=== PATIENT | male | born 1950 | race Caucasian/White ===

== ENCOUNTER 2018-04-06 05:38 | Day surgery (SDC) | payer OTHER, BC ==
[2018-03-24 10:46] VITALS: BMI 35.0
--- NOTE | 2018-03-24 11:18 | PAT Medication Instructions ---
Service Date March 24, 2018. Current Home Medication List Aspirin (Aspirin Chewable), 81 MG PO QAM Atorvastatin (Lipitor), 1 TAB PO QAM Bicalutamide (Casodex), 1 TAB PO QAM Docusate Sodium (Colace), 1 CAP PO BID Leuprolide Acetate (Lupron Depot), 22.5 MG IM DIRECTED Omeprazole (Prilosec), 20 MG PO QAM Tadalafil (Cialis), 20 MG PO UD Medication Instructions For Your Scheduled Surgery -Check with your surgeon and prescriber for instructions for: Aspirin (Aspirin Chewable), 81 MG PO QAM -Continue as directed: Leuprolide Acetate (Lupron Depot), 22.5 MG IM DIRECTED - Hold the following medications the morning of surgery: Docusate Sodium (Colace), 1 CAP PO BID Tadalafil (Cialis), 20 MG PO UD - Take the following medications the morning of surgery with a sip of water: Atorvastatin (Lipitor), 1 TAB PO QAM Bicalutamide (Casodex), 1 TAB PO QAM Omeprazole (Prilosec), 20 MG PO QAM - Take the following medications as scheduled the night before surgery: Docusate Sodium (Colace), 1 CAP PO BID Tadalafil (Cialis), 20 MG PO UD (if needed) If you have any questions please call us at [phone] or [phone] or [phone]
--- NOTE | 2018-03-24 12:09 | DIAGNOSTIC IMAGING REPORT ---
CHEST 2 VIEWS ROUTINE CLINICAL HISTORY: PAT preoperative evaluation COMPARISON STUDY: No previous studies for comparison. FINDINGS: The bones soft tissues and hemidiaphragms are normal. The cardiomediastinal silhouette is normal. The lungs are clear. The pulmonary vasculature is normal. IMPRESSION: Negative chest. The above report was generated using voice recognition software. It may contain grammatical, syntax or spelling errors. Electronically signed by: Yovany Chang M.D. 03/24/2018 12:08 PM Dictated Date/Time: 03/24/2018 12:07 PM
[2018-03-24 12:34] LABS: BASO % 0.1 %; BASO ABS # 0.01 K/uL (0-0.2); EOS % 2.1 %; EOS ABS # 0.18 K/uL (0-0.5); HEMATOCRIT 42.1 % (42-52); IG# 0.02 K/uL (0.00-0.02); LYMPH % 23.7 %; LYMPH ABS # 1.99 K/uL (1.2-3.4); MEAN CELL VOLUME 86.3 fL (80-100); MEAN CORPUSCULAR HEMOGLOBIN 30.7 pg (25-34); MEAN CORPUSCULAR HGB CONC 35.6 g/dl (32-36); MEAN PLATELET VOLUME 9.4 fL (7.4-10.4); MONO % 6.4 %; MONO ABS # 0.54 K/uL (0.11-0.59); NEUT % 67.5 %; NEUT ABS # 5.66 K/uL (1.4-6.5); PLATELET COUNT 245 K/uL (130-400); RED CELL DISTRIBUTION WIDTH CV 13.8 % (11.5-14.5); RED CELL DISTRIBUTION WIDTH SD 43.1 fL (36.4-46.3)
[2018-03-24 12:42] LABS: CALCIUM 9.3 mg/dl (8.5-10.1); CREATININE 1.12 mg/dl (0.60-1.40); POTASSIUM 4.1 mmol/L (3.5-5.1)
[~2018-04-06] VITALS: Ht 170.2 cm; Wt 101.3 kg
[~2018-04-06 05:38] MED LIST: ASPCH81X PO; ATOR-24 PO; BICA50TA2 PO; DOCU-94 PO; LEUP1INJ15 IM; PRLSR20 PO; TADA10TA PO
[2018-04-06] MEDS ORDERED: CIPROFLOXACIN / D5W 400 MG IV SCH (06:00)
[2018-04-06] MEDS ORDERED: LACTATED RINGER'S 1000ML 1,000 ML IV SCH (06:00)
[2018-04-06] MEDS ORDERED: GENTAMICIN INJ 120 MG in DEXTROSE 5% 100ML 100 ML IV SCH (06:00)
[2018-04-06] MEDS ORDERED: THIA100T11 PO (06:10)
[2018-04-06 06:14] VITALS: BP 190/112; PULSE 75; TEMP 36.6; O2SAT 98; Ht 170.2 cm; Wt 101.3 kg
[2018-04-06] MEDS ORDERED: MIDAZOLAM HCL 1 MG/ML 2ML VIAL ONE (06:38)
[2018-04-06] MEDS ORDERED: DEXAMETHASONE SOD INJ 4 MG/ML VIAL ONE (06:38)
[2018-04-06] MEDS ORDERED: ONDANSETRON INJ 2 MG/ML 2 ML VIAL ONE (06:38)
[2018-04-06] MEDS ORDERED: LIDOCAINE HCL 2% 2 ML VIAL (20MG/ML) ONE (06:38)
[2018-04-06] MEDS ORDERED: FENTANYL CITRATE INJ 50 MCG/1 ML 2 ML VIAL ONE (06:38)
[2018-04-06] MEDS ORDERED: PROPOFOL IV EMULSION 10 MG/ML 20 ML VIAL ONE (06:38)
[2018-04-06] MEDS ORDERED: CONRAY 60% 50 ML VIAL ONE (07:01)
[2018-04-06] MEDS ORDERED: BACITRACIN OINT 15 GM TUBE ONE (07:02)
--- NOTE | 2018-04-06 07:05 | History & Physical Bridge Note ---
H&P Re-Evaluation Bridge Note: I have examined the patient, reviewed the History & Physical and in the interval since the performance of the History & Physical I have noted the following changes of clinical significance: No changes noted
[2018-04-06] MEDS ORDERED: MEPERIDINE HCL 25 MG/ML CARP IV PRN (07:45)
[2018-04-06] MEDS ORDERED: ATROPINE SULFATE 0.1 MG/ML 5ML SYR IV PRN (07:45)
[2018-04-06] MEDS ORDERED: HYDROmorphone INJ 0.5 MG/0.5 ML SYR IV PRN (07:45)
[2018-04-06] MEDS ORDERED: PHENYLEPHRINE 100MCG/ML 5ML SYR IV PRN (07:45)
[2018-04-06] MEDS ORDERED: FLUMAZENIL 0.1 MG/1 ML 10 ML VIAL IV PRN (07:45)
[2018-04-06] MEDS ORDERED: NALOXONE HCL 0.4 MG/1 ML VIAL/CARP IV PRN (07:45)
[2018-04-06] MEDS ORDERED: FENTANYL CITRATE INJ 50 MCG/1 ML 2 ML VIAL IV PRN (07:45)
[2018-04-06] MEDS ORDERED: ONDANSETRON INJ 2 MG/ML 2 ML VIAL IV PRN (07:45)
[2018-04-06] MEDS ORDERED: EpHEDrine SULFATE INJ 50 MG/ML AMP IV PRN (07:45)
[2018-04-06] MEDS ORDERED: LABETALOL HCL IV 5 MG/ML 20ML IV PRN (07:45)
[2018-04-06] MEDS ORDERED: EpHEDrine SULFATE INJ 50 MG/ML AMP ONE (08:20)
[2018-04-06] MEDS ORDERED: NEOSTIGMINE METHYLSULFATE 5 MG/5 ML SYR ONE (08:37)
[2018-04-06] MEDS ORDERED: GLYCOPYRROLATE INJ 0.2 MG/ML VIAL ONE ×2 (08:37→08:46)
[2018-04-06] MEDS ORDERED: ROCURONIUM BROMIDE 10 MG/ML 5 ML VIAL ONE (08:40)
[2018-04-06] MEDS ORDERED: LABETALOL HCL IV 5 MG/ML 20ML ONE (08:57)
--- NOTE | 2018-04-06 09:10 | Discharge Instructions ---
Discharge Instructions Date of Service April 06, 2018. Admission Reason for Admission: Prostate Cancer Discharge Discharge Diagnosis / Problem: Same status post aborted brachytherapy due to equipment malfunction Discharge Goals Goal(s): Improve disease control, Therapeutic intervention Activity Recommendations Activity Limitations: resume your previous activity . Instructions / Follow-Up Instructions / Follow-Up As scheduled in office, will contact with new appointments. Current Hospital Diet Patient's current hospital diet: Discharge Diet Recommended Diet: Regular Diet Procedures Procedures Performed: Attempted Brachy Therapy aborted due to equipment failure Pending Studies Studies pending at discharge: no Medical Emergencies . Who to Call and When: Medical Emergencies: If at any time you feel your situation is an emergency, please call 911 immediately. . Non-Emergent Contact Non-Emergency issues call your: Urologist Call Non-Emergent contact if: you have a fever . . "Provider Documentation" section prepared by Alex Ortiz. .
--- NOTE | 2018-04-06 09:15 | [facility] Operative Report ---
Operative Report Operative Date April 06, 2018. Pre-Operative Diagnosis Prostate cancer Post-Operative Diagnosis Prostate cancer Procedure(s) Performed Attempted Brachy Therapy aborted due to equipment failure Surgeon Dr. Alex Ortiz MD Coach Professional Athletes Surgeon(s) Dr. Von Simental Estimated Blood Loss 0ml Findings Apparent malfunction of the transverse crystal of the brachytherapy probe. Specimens None per surgeon Drains None Anesthesia Type General Complication(s) Malfunction of the brachytherapy program Disposition no Recovery Room / PACU Indications Patient is a 68-year-old male with high-grade prostate cancer who is here today for prostate seed implantation in combination with planned external beam boost and ongoing androgen deprivation therapy. Please see H&P for further details. SCDs were used for DVT prophylaxis and IV ciprofloxacin and gentamicin today for antibiotic prophylaxis. Patient reports he has followed his prep as instructed. Description of Procedure Patient was properly identified and brought into the operative suite after identification for proper consent of the chart. General anesthesia with endotracheal intubation was initiated and patient was prepped and draped in the standard fashion for this procedure. Full timeout procedure was followed. Silicone Vargas catheter was placed and the bladder was drained. Conray was placed within the bladder followed by aerated gel for urethral identification. Patient was placed in the high lithotomy position and transrectal ultrasound probe was introduced. This demonstrated an excellent transverse image for a short period of time which then deteriorated and became unrecoverable. Multiple attempts at troubleshooting the probe including changing the probe insertion into the ultrasound machine and changing the ultrasound machine were undertaken. The other available probe was a biopsy probe not adequate for prostate seed implantation. Despite these maneuvers the sagittal image continue to be accurate but the transverse images were unusable for the purposes of this case not providing an anatomic representation of the prostate. After attempts of troubleshooting and failed and contacting the [employer] sales representative facility services the case was aborted. Probe was removed and bladder was drained with subsequent removal of the catheter. Anesthesia was reversed and patient was transferred to the recovery room in stable condition. Follow-up instructions: Patient can hold on his postoperative prescribed medication regimen. We will contact the patient as an outpatient for rescheduling of his case and new appointments. No limitations in the postoperative period. Care is discussed at length with the patient's family present today who vocalize good understanding of the intraoperative events and with the patient himself after recovery. I attest to the content of the Intraoperative Record and any orders documented therein. Any exceptions are noted below.
[2018-04-06 09:45] VITALS: BP 143/97; PULSE 72; TEMP 36.4; O2SAT 97
[2018-04-06 10:15] VITALS: BP 144/79; PULSE 80; O2SAT 96
[2018-04-06 10:45] VITALS: BP 136/9; PULSE 82; TEMP 36.4; O2SAT 97
--- NOTE | 2018-04-06 10:52 | Anesthesiology Progress Note ---
Anesthesia Post Op Note Date & Time April 06, 2018 at 10:52 Vital Signs Pain Intensity: 0 Vital Signs Past 12 Hours Date Time Temp Pulse Resp B/P (MAP) Pulse Ox O2 Delivery O2 Flow Rate FiO2 04/06/18 10:15 80 20 144/79 96 Room Air 04/06/18 09:45 36.4 72 20 143/97 97 Room Air 04/06/18 09:37 67 15 94 04/06/18 09:37 68 15 04/06/18 09:36 158/94 04/06/18 09:32 68 14 95 04/06/18 09:32 68 14 04/06/18 09:31 152/93 04/06/18 09:27 70 15 97 04/06/18 09:27 36.2 72 16 152/93 (109) 94 Room Air 04/06/18 09:27 70 15 04/06/18 09:26 134/84 04/06/18 09:22 70 15 04/06/18 09:22 70 15 97 04/06/18 09:21 146/90 04/06/18 09:17 72 17 100 04/06/18 09:17 72 17 04/06/18 09:16 136/84 04/06/18 09:12 70 16 04/06/18 09:12 70 16 99 04/06/18 09:11 140/88 04/06/18 09:10 73 15 99 04/06/18 09:10 73 15 04/06/18 09:06 149/92 04/06/18 09:05 68 17 04/06/18 09:05 68 17 98 04/06/18 09:01 155/93 04/06/18 09:00 36.2 70 14 155/93 (103) 98 Oxymask 10 04/06/18 06:14 36.6 75 20 190/112 (138) 98 Room Air Notes Mental Status: alert / awake / arousable, participated in evaluation Pt Amnestic to Procedure: Yes Nausea / Vomiting: adequately controlled Pain: adequately controlled Airway Patency, RR, SpO2: stable & adequate BP & HR: stable & adequate Hydration State: stable & adequate Anesthetic Complications: no major complications apparent
== END 2018-04-06 11:00 | disposition home or self-care (01) ==
LOC: C.ACU 05:38
PROVIDERS: ATTEND Urology
DX: C61 Malignant neoplasm of prostate (principal); Z53.09 Procedure and treatment not carried out because of other contraindication; I25.2 Old myocardial infarction; I25.10 Atherosclerotic heart disease of native coronary artery without angina pectoris; E78.5 Hyperlipidemia, unspecified; K21.9 Gastro-esophageal reflux disease without esophagitis; E66.9 Obesity, unspecified; G47.33 Obstructive sleep apnea (adult) (pediatric); Z79.82 Long term (current) use of aspirin; Z87.442 Personal history of urinary calculi

== ENCOUNTER 2019-05-07 06:46 | Observation (INO) ==
--- NOTE | 2019-05-07 08:04 | Pre Anesthesia Assessment ---
Date of Service May 07, 2019 Pre Sedation Assessment Vital Signs Temp Resp BP Pulse Ox 05/07/19 07:13 36.8 C 16 163/108 H 95 Cardiovascular RRR, no murmur, no edema Respiratory normal respiratory effort, lungs clear to auscultation Pre-Sedation Airway Assessment Smoking Status: Never smoker Hx Sleep Apnea: No Hx Difficult Intubation: No Short, Thick Neck: Yes Thyromental Distance: < 3.5 Finger Breadths Oral Cavity: + WNL Mallampati Class: III ASA: ASA3 NPO Status Date of Last Intake of Fluids: 05/06/19 Time of Last Intake of Fluids: 21:00 Date of Last Intake of Solid Food: 05/06/19 Time of Last Intake of Solid Foods: 21:00 Procedure Planning Contraindications for Sedation: none Current Medications Reviewed: Yes Notes The planned sedation has been discussed with the patient. Informed Consent was obtained. I have identified the patient, determined the appropriateness of sedation and have assessed the patient immediately prior to the procedure. All medicine(s) and interventions are by my order.
--- NOTE | 2019-05-07 08:04 | History & Physical Bridge Note ---
Date of Service May 07, 2019 History & Physical Bridge Note I have examined the patient, reviewed the History & Physical and in the interval since the performance of the History & Physical I have noted the following changes of clinical significance: no changes noted
[2019-05-07] MEDS ORDERED: fentaNYL citrate 100 MCG/2 ML VIAL ONE (08:08)
[2019-05-07] MEDS ORDERED: NiCARDipine HCL INJ 2.5 MG/ML 10 ML AMP ONE (08:08)
[2019-05-07] MEDS ORDERED: MIDAZOLAM HCL 1 MG/ML 2ML VIAL ONE ×2 (08:08→09:41)
[2019-05-07] MEDS ORDERED: HEPARIN (PORCINE) 1000 UNIT/ML 10 ML (CATH LAB USE ONLY) ONE ×2 (08:09→09:23)
[2019-05-07] MEDS ORDERED: NITROGLYCERIN/D5W 100MCG/ML 20ML SYR ONE (08:09)
[2019-05-07] MEDS ORDERED: ONDANSETRON INJ 2 MG/ML 2 ML VIAL ONE (09:41)
[2019-05-07] MEDS ORDERED: CLOPIDOGREL BISULFATE 300 MG TAB ONE (09:58)
--- NOTE | 2019-05-07 10:05 | Post Anesthesia Assessment ---
Date of Service May 07, 2019 Post Sedation Assessment Vital Signs Temp Resp BP Pulse Ox 05/07/19 07:13 36.8 C 16 163/108 H 95 Recovery Score Activity: Moves 4 extremities Respiration: Deep Breath/Cough Circulation: +/-20% PreAnes Value Consciousness: Fully Awake Oxygen Saturation: O2 needed for >90% Discharge Sedation Level of Care: Fast Track Phase II Post Sedation Plan On clinical assessment, the patient appears to have tolerated the sedation without complications. Patient is recovering as anticipated. Patient will continue to be monitored by nursing and may be discharged when sedation discharge criteria are met per below protocol. Upon Completions of procedure and additional 15 minutes continue every 5 minute vital signs and the P.A.R. score; then discharge to a Phase I or Fast Track to Phase II per the following guidelines: * Discharge Patient to appropriate Phase II area if PAR is 8 or greater or return to pre- procedure baseline. The post - procedure orders will be as directed. * If PAR score is less than 8 or not return to pre-procedure baseline then patient will follow Phase I monitoring till PAR is reached for Phase II. The Phase I may be done in procedure room or may call to secure a Phase I area. * If naloxone or flumazenil are used for reversal, hold in Phase I for continued monitoring from when last reversal dose was given for a minimum of 60 minutes or longer pending the nurse and/or physician discretion of patient condition before discharge to Phase II. Please call the Sedation Physician to re-evaluate and complete post-note for discharge to Phase II area. Do NOT discharge from procedure sedation or Phase 1 until post- sedation evaluation note is complete by procedure /sedation MD Sedation Discharge Instructions to be given to the patient at discharge to home.
[2019-05-07 10:09] LABS: iSTAT Arterial Blood Gas HCO3 25 meg/L (19-24); iSTAT Arterial Blood Gas pCO2 44 mmHg (35-46); iSTAT Arterial Blood Gas pH 7.35 (7.35-7.45); iSTAT Arterial Blood Gas pH 7.37 (7.35-7.45); iSTAT Carbon Dioxide 26 mEq/l (24-31)
--- NOTE | 2019-05-07 10:19 | Cardiac Catheterization ---
Cardiac Cath Procedure Full Procedure Date May 07, 2019 Pre-Procedure Diagnosis Pre-Procedure Diagnosis: Angina AUC Score AUC Score: 7 Post-Procedure Diagnosis Post-Procedure Diagnosis: Severe CAD Procedure(s) Performed Procedure(s) Performed: Coronary Angiography, Left Heart Cath, Right Heart Cath, Drug Eluting Stent and IVUS Circuit Court Magistrate Zach Schmidt MD Leasing Property Manager(s) Eduin Estimated Blood Loss Estimated Blood Loss: 15 Medication(s) Medication(s): Clopidogrel, Fentanyl, Heparin, Lidocaine 1%, Nicardipine, Nitroglycerin and Versed Summary of Findings Indication: Accelerating angina, exertional dyspnea, history of coronary artery disease Access: 6 Fr slender right radial artery, 6 Fr slender right antecubital vein Catheters: 6 Fr Mina Baker, JL 3 5, JR4, EBU 3.5 guide Findings: LM -Short, calcified, mild diffuse disease LAD -moderately calcified, ectatic proximally, 30% mid segment disease, diffuse distal disease prior to wrapping around apex. Gives off to moderate caliber diagonals without significant disease. Circumflex -moderate caliber vessel, 4050% ostial stenosis, moderately calcified, diffuse mild mid segment disease. OM 3 with 70% diffuse disease, small OM 4 with 90% ostial stenosis RCA -dominant, mild proximal luminal irregularities, widely patent mid segment stent, distal luminal irregularities, mild diffuse disease and PDA. LVEDP -15 RA 5 RV 25/9 PA 25/11 (18) PAWP 8 PaSat 67% AoSat 91% Josh CO/CI 5.5/2.6 -- PCI -- Antithrombotic therapy: Heparin, clopidogrel Procedure: Left main cannulated with EBU 3.5 guide Whisper wire wire passed across lesion into distal OM 3 Research Test Engine Operator 50 wire passed into OM4 IVUS used to assess ostium of circumflex. Noted to have severe mildly calcified disease and proximal aspect of OM 3. Moderate, 50 to 60% MLA 5.5 mm, calcified ostial stenosis. Ostium of OM 4 dilated with 2.5 balloon Proximal OM 3 dilated with 2.5 balloon OM 3 stented with 2.5 x 26 mm Tim drug-eluting stent OM 4 rewired with area relief pilot 50 wire Stent postdilated with 2.75 NC to high atmospheres Ostium of OM 4 through stent struts dilated with 1.5 and 2.0 balloons. IC vasodilators administered for spasm Post procedure QUINN 3 flow, stent well expanded. QUINN-3 flow in OM 4 with 50 to 60% residual ostial stenosis. Arterial Closure: TR band Summary: 1. Severe single vessel coronary artery disease -70% proximal OM 3, 90% small ostial OM 4 50% ostial circumflex Widely patent mid RCA stent 2. Normal left and right-sided filling pressures. 3. Preserved cardiac output 4. Normal pulmonary artery pressures 5. Successful PCI of proximal OM 3 with single drug-eluting stent (2.5 x 26 mm Tim; postdilated with 2.75 NC). POBA to ostium of small OM 4 Recommendations: To PCU for continued monitoring Loaded with clopidogrel 600 mg in tag and label cutter Continue dual-antiplatelet therapy for at least 6 months Continue statin, and ASCVD risk factor modification Maximize antianginal therapy Consult cardiac Rehab Hemodynamics Rest Ao:: 148/87/115 Final Ao: 134/81/106 LV: 162/15 Recommendations Recommendations: PCI without planned CABG Specimens Specimens: None Radiation Exposure (mGy) 6329 Contrast (mls) 180 Fluids (cc crystalloids) Fluids (cc crystalloids): 187 Drains Drains: none Anesthesia moderate Procedural Complication(s) None Disposition PCU ACC Data: Business Development Engineer Cardiac Status Clinical evaluation leading to the procedure CAD Presenation: Unstable angina Anginal Classification: CCS III Heart Failure: No Cardiogenic Shock within 24 Hours: No Cardiac Arrest within 24 Hours: No Imaging Studies Past 6 Months: No Stress Studies Past 6 Months: No Diagnostic Physicians Name: Zach Schmidt MD Status: Elective Closure Device Percutaneous Entry Location: Radial Closure Device: Radial Band Recommendations: PCI without planned CABG PCI Indication: Unstable Angina Lesion Segment Name: proximal OM3 Culprit Artery: Yes Stenosis Prior to Rx (%): 70 Chronic Total Occlusion: No IVUS: Yes FFR: No Pre-Procedure QUINN Flow: 3 Previously Treated Lesion: No Lesion Complexity: High/C Lesion Length (mm): 23 Thrombus Present: No Bifurcation Lesion: Yes Guidewire Across Lesion: Stenosis Post-Procedure (%): 0 Post-Procedure QUINN Flow: 3 Devices(s) Deployed: Yes Yes Intraprocedure Events Significant Disection: No Perforation: No
[2019-05-07] MEDS ORDERED: ONDANSETRON INJ 2 MG/ML 2 ML VIAL IV PRN (10:21)
[2019-05-07] MEDS ORDERED: SODIUM CHLORIDE 0.9% 1000ML 1,000 ML IV SCH (10:30)
[2019-05-07 11:44] LABS: INR 1.1 (0.9-1.1); Partial Thromboplastin Ratio > 5.1; Prothrombin Time 11.2 Seconds (9.0-12.0)
[2019-05-07] MEDS ORDERED: HydrALAZINE HCL 20 MG/ML VIAL IV STA ×3 (12:07→14:37)
[2019-05-07] MEDS ORDERED: HydrALAZINE HCL 20 MG/ML VIAL ONE (12:08)
[2019-05-07] MEDS: ISOSORBIDE MONO EXTENDED REL 30 MG TABCR PO SCH (12:38)
[2019-05-07] MEDS: METOPROLOL TARTRATE 25 MG TAB PO SCH ×2 (12:38→19:40)
[2019-05-07 13:05] LABS: Partial Thromboplastin Time > 139.0 Seconds (21.0-31.0)
[2019-05-07] MEDS: OXYBUTYNIN CHLORIDE 5 MG TAB PO SCH ×2 (14:14→19:40)
[2019-05-07] MEDS: TAMSULOSIN HCL 0.4 MG CAP PO SCH (19:40)
[2019-05-08 05:59] LABS: Basophils # (auto) 0.01 K/uL (0-0.2); Basophils % (auto) 0.2 %; Eosinophils # (auto) 0.07 K/uL (0-0.5); Eosinophils % (auto) 1.1 %; Hematocrit (blood only) 39.1 % (42-52); Hemoglobin 13.7 g/dL (14.0-18.0); Immature Granulocytes # (auto) 0.01 K/uL (0.00-0.02); Immature Granulocytes % (auto) 0.2 %; Lymphocytes # (auto) 0.72 K/uL (1.2-3.4); Lymphocytes % (auto) 11.6 %; Mean Corpuscular Volume 87.1 fL (80-100); Mean Platelet Volume 8.5 fL (7.4-10.4); Monocytes # (auto) 0.38 K/uL (0.11-0.59); Monocytes % (auto) 6.1 %; Neutrophils # (auto) 5.01 K/uL (1.4-6.5); Neutrophils % (auto) 80.8 %; Platelet Count 178 K/uL (130-400); RDW Coefficient of Variation 13.8 % (11.5-14.5); RDW Standard Deviation 43.4 fL (36.4-46.3); Red Blood Count 4.49 M/uL (4.7-6.1)
[2019-05-08 06:28] LABS: BUN Creatinine Ratio 14.5 (10-20); Calcium 9.1 mg/dl (8.5-10.1); Creatinine Clr Calc Pharmacy 79.9 ml/min; Est GFR (African American) 87.7; Est GFR (Non-African American) 75.7; Potassium 4.2 mmol/L (3.5-5.1)
[2019-05-08] MEDS: TAMSULOSIN HCL 0.4 MG CAP PO SCH (07:46)
[2019-05-08] MEDS: ISOSORBIDE MONO EXTENDED REL 30 MG TABCR PO SCH (07:47)
[2019-05-08] MEDS: METOPROLOL TARTRATE 25 MG TAB PO SCH (07:47)
[2019-05-08] MEDS: OXYBUTYNIN CHLORIDE 5 MG TAB PO SCH (07:48)
--- NOTE | 2019-05-08 08:29 | Discharge Summary ---
Date of Service May 08, 2019 Admission HPI Per Admitting Provider Mr. Bashir is a very pleasant 69-year-old man with a history of prostate cancer on hormonal therapy post radiation last year (followed by Dr. Ortiz with urology, Dr. Bashir Oncology), hypertension, dyslipidemia, suspected sleep apnea, GERD, diverticulosis and known coronary artery disease who presents today for further discussion of management options for his coronary artery disease. Patient previously followed by Dr. Jaramillo in [place] for his cardiac disease. Had a previous "mild" NE in 2003 with PCI with stenting and resolution for presenting chest pain. In April 2018 had recurrent chest pain with worsening dyspnea on exertion and had repeat cardiac catheterization at [facility] which reportedly showed 40% mid LAD, 40% OM1, 40 to 50% OM 2, 70% distal circumflex and 4050% mid RCA disease. Per prior cardiac notes reportedly had atrial fibrillation during procedure. Patient was not on antianginal therapy at that time and was prescribed metoprolol and isosorbide mononitrate. Patient took medication for several months but was frustrated by lack of improvement in exertional dyspnea symptoms it is since stopped medications. Presently reports gradually worsening exertional dyspnea. States can walk up to several blocks on level ground but up any grade has limiting shortness of breath. Reports occasional exertional chest pain which is brief, last 1 or 2 weeks ago denies orthopnea, PND, lower extremity edema. Denies palpitations. Denies presyncope. From a prostate standpoint things are thought to be stable on Lupron last PSA undetectable. Undergoing occasional surveillance, no plans for additional surgery at this time. Specialty Data Cardiology Summary: 1. Severe single vessel coronary artery disease -70% proximal OM 3, 90% small ostial OM 4 50% ostial circumflex Widely patent mid RCA stent 2. Normal left and right-sided filling pressures. 3. Preserved cardiac output 4. Normal pulmonary artery pressures 5. Successful PCI of proximal OM 3 with single drug-eluting stent (2.5 x 26 mm Tim; postdilated with 2.75 NC). POBA to ostium of small OM 4 Discharge Data Procedures Performed Operation Date: 05/07/19 08:00 Actual Procedures p Cineradiography w/Routine Exam - Mazin Schmidt MD s POBA SGL Vessel - Mazin Schmidt MD p Cath, Right and Left Heart - Mazin Schmidt MD s Drug Eluting Stent SGl Vessel - Mazin Schmidt MD s IVUS Coronary Single Vessel - Mazin Schmidt MD Hospital Course (1) Coronary artery disease: Patient underwent right and left heart catheterization via right radial a rtery and antecubital vein. Was found to have normal biventricular filling pressures and preserved cardiac output. No pulmonary hypertension. Coronary angiography revealed a patent prior mid RCA stent, moderate ostial circumflex disease and severe disease involving proximal OM 3 and bifurcation with OM 4. Patient underwent placement of a single drug-eluting stent to his OM 3 with balloon angioplasty to ostium of OM 4. Post procedure he was admitted to telemetry for observation. Was hypertensive up into the 190s requiring IV hydralazine and restarting of prior metoprolol, isosorbide mononitrate. Blood pressure better controlled overnight. Telemetry unremarkable. Follow-up labs in a.m. stable. No apparent access site complications. Discharged home on hospital day 2 with plan for cardiology follow-up in 2 weeks. Continue DAPT with aspirin, clopidogrel. Metoprolol increased to 25 mg twice daily. Stressed importance of resuming prior statin and remainder of cardiac regimen.
[2019-05-08] MEDS ORDERED: BICALUTAMIDE 50 MG TAB PO SCH ×2 (09:00)
[2019-05-08] MEDS ORDERED: ENOXAPARIN INJ 40 MG/0.4 ML SYR SQ SCH (09:00)
[2019-05-08] MEDS ORDERED: PANTOprazole 40 MG TAB PO SCH (09:00)
[2019-05-08] MEDS ORDERED: CLOPIDOGREL BISULFATE 75 MG TAB PO SCH (09:00)
[2019-05-08] MEDS ORDERED: ATORVASTATIN 40 MG TAB PO SCH (09:00)
[2019-05-08] MEDS ORDERED: ASPIRIN 81 MG ECTAB PO SCH (09:00)
[2019-05-08] MEDS ORDERED: CALCIUM 600MG + VIT D 400 IU TAB PO SCH (09:00)
== END 2019-05-08 09:15 | disposition home or self-care (01) ==
LOC: 2S 06:46 → CC 06:46